=== PATIENT | male | born 1945 | race Hispanic/Latino ===

== ENCOUNTER 2016-10-14 10:26 | Outpatient (CLI) | payer MEDICARE ==
[2016-10-14 12:30] LABS: Anion Gap 15 mmol/L (10-20); BUN (Urea Nitrogen) 21 mg/dL (8.4-25.7); Calc. Creatinine Clearance 0 mL/min (70-130); Calcium 9.1 mg/dL (7.8-10.44); Carbon Dioxide 21 mmol/L (23-31); Chloride 107 mmol/L (98-107); Estimated GFR-MDRD 59; Glucose 182 mg/dL (80-115); Potassium 4.5 mmol/L (3.5-5.1); Sodium 138 mmol/L (136-145)
== END 2016-10-14 10:27 | disposition home or self-care (01) ==
LOC: BURLAB 10:26
PROVIDERS: ATTEND Internal Medicine Nephrology
DX: N18.3 Chronic kidney disease, stage 3 (moderate) (principal)
CPT/HCPCS: 36415; 80048

== ENCOUNTER 2017-02-10 09:43 | Outpatient (CLI) | payer MEDICARE ==
[2017-02-10 12:12] LABS: Anion Gap 11 mmol/L (10-20); BUN (Urea Nitrogen) 20 mg/dL (8.4-25.7); Calc. Creatinine Clearance 0 mL/min (70-130); Calcium 9.3 mg/dL (7.8-10.44); Carbon Dioxide 26 mmol/L (23-31); Chloride 107 mmol/L (98-107); Estimated GFR-MDRD 67; Glucose 149 mg/dL (80-115); Potassium 4.4 mmol/L (3.5-5.1); Sodium 140 mmol/L (136-145)
== END 2017-02-10 09:44 | disposition home or self-care (01) ==
LOC: BURLAB 09:43
PROVIDERS: ATTEND Internal Medicine Nephrology
DX: N18.3 Chronic kidney disease, stage 3 (moderate) (principal)
CPT/HCPCS: 36415; 80048

== ENCOUNTER 2019-11-01 12:33 | Inpatient (IN) | payer MEDICARE ==
[2019-11-01] MEDS ORDERED: Dextrose 5% in Water 1,000 ML IV PRN ×2 (16:27→16:45)
[2019-11-01] MEDS ORDERED: Dextrose 50% Abboject 50 ML SYRINGE SLOW IVP PRN ×2 (16:27→16:45)
[2019-11-01] MEDS ORDERED: HumaLOG 300 UNITS/3 ML VIAL SC PRN (16:45)
[2019-11-01] MEDS: Acetaminophen 325 MG TAB PO PRN (17:41)
[2019-11-01] MEDS: metFORMIN 850 MG TAB PO SCH (17:54)
[2019-11-01] MEDS: Ciprofloxacin 0.3% Ophth Drops 2.5 ml Bottle L EYE SCH ×2 (17:55→23:37)
[2019-11-01] MEDS ORDERED: Ciprofloxacin 0.3% Ophth Drops 2.5 ml Bottle L EYE SCH (18:00)
[2019-11-01] MEDS: Vancomycin HCl 1 GM in Sodium Chloride 0.9% 250 ML 250 ML IVPB SCH (18:20)
[2019-11-01] MEDS: HumaLOG 300 UNITS/3 ML VIAL SC PRN (18:21)
[2019-11-01] MEDS: Rosuvastatin 10 MG TAB PO SCH (20:36)
[2019-11-01] MEDS: Apixaban 5 MG TAB PO SCH (20:37)
[2019-11-01] MEDS: Carvedilol 6.25 MG TAB PO SCH (20:37)
[2019-11-01] MEDS: Lantus 1000 UNITS/10 ML VIAL SC SCH (20:42)
[2019-11-02] MEDS: Ciprofloxacin 0.3% Ophth Drops 2.5 ml Bottle L EYE SCH ×4 (05:07→23:20)
[2019-11-02 05:26] LABS: Hemoglobin 10.7 g/dL (14.0-18.0); Platelet Count 227 thou/uL (130-400)
[2019-11-02] MEDS ORDERED: Prevnar 13-Val Conj/PF 0.5 ML SYRINGE IM ONE (09:00)
[2019-11-02] MEDS: Apixaban 5 MG TAB PO SCH ×2 (09:19→20:23)
[2019-11-02] MEDS: Carvedilol 6.25 MG TAB PO SCH ×2 (09:20→20:23)
[2019-11-02] MEDS: metFORMIN 850 MG TAB PO SCH ×2 (09:20→17:13)
[2019-11-02] MEDS: Vancomycin HCl 1 GM in Sodium Chloride 0.9% 250 ML 250 ML IVPB SCH (11:38)
[2019-11-02] MEDS: HumaLOG 300 UNITS/3 ML VIAL SC PRN (13:36)
[2019-11-02] MEDS: Rosuvastatin 10 MG TAB PO SCH (20:22)
[2019-11-02] MEDS: Lantus 1000 UNITS/10 ML VIAL SC SCH (20:23)
[2019-11-03] MEDS: Vancomycin HCl 1 GM in Sodium Chloride 0.9% 250 ML 250 ML IVPB SCH ×2 (05:19→23:05)
[2019-11-03] MEDS: Ciprofloxacin 0.3% Ophth Drops 2.5 ml Bottle L EYE SCH ×4 (05:21→23:05)
[2019-11-03] MEDS: Albuterol Sulfate 2.5 mg/3 ml Neb NEB PRN ×2 (08:16→20:09)
[2019-11-03] MEDS: Carvedilol 6.25 MG TAB PO SCH ×2 (08:22→20:04)
[2019-11-03] MEDS: Apixaban 5 MG TAB PO SCH ×2 (08:22→20:04)
[2019-11-03] MEDS: metFORMIN 850 MG TAB PO SCH ×2 (08:22→17:15)
[2019-11-03] MEDS: HumaLOG 300 UNITS/3 ML VIAL SC PRN ×2 (08:30→12:56)
[2019-11-03 08:48] LABS: #Lymphocytes 1.1 thou/uL (1.20-3.40); #Monocytes 0.6 thou/uL (0.11-0.59); #Neutrophils 10.1 thou/uL (1.40-6.50); %Basophils 0.4 % (0.0-1.0); %Eosinophils 0.1 % (0.0-10.0); %Lymphocytes 9.4 % (21.0-51.0); %Monocytes 5.3 % (0.0-10.0); %Neutrophils 84.8 % (42.0-75.0); Hemoglobin 10.7 g/dL (14.0-18.0); Mean Corpuscular HGB CONC 32.6 g/dL (32.0-36.0); Mean Corpuscular Hemoglobin 30.9 pg (27.0-31.0); Mean Corpuscular Volume 94.9 fL (78.0-98.0); Mean Platelet Volume 7.2 fL (7.4-10.4); Platelet Count 284 thou/uL (130-400); RBC Distribution Width 12.3 % (11.5-14.5); Red Blood Cell (RBC) Count 3.46 mill/uL (4.70-6.10); White Blood Cell (WBC) Count 11.9 thou/uL (4.8-10.8)
[2019-11-03 08:51] LABS: Anion Gap 15 mmol/L (10-20)
[2019-11-03 08:58] LABS: ALT (SGPT) 10 U/L (8-55); AST (SGOT) 8 U/L (5-34); Alkaline Phosphatase 65 U/L (40-110); BUN (Urea Nitrogen) 13 mg/dL (8.4-25.7); Bilirubin, Total 0.6 mg/dL (0.2-1.2); Calc. Creatinine Clearance 47 mL/min (70-130); Carbon Dioxide 23 mmol/L (23-31); Chloride 104 mmol/L (98-107); Estimated GFR-MDRD 52; Glucose 209 mg/dL (83-110); Potassium 4.3 mmol/L (3.5-5.1); Sodium 138 mmol/L (136-145)
--- NOTE | 2019-11-03 10:51 | RAD ---
CHEST 2 VIEWS: Date: 11/03/2019 AP upright and lateral views were done in a wheelchair. The patient is turned slightly towards the [facility]. Since the 05/08/2010 study, an AICD has been placed. The cardiac size today is close to normal. The v asculature shows a very slight prominence and there is a tiny amount of fluid in the minor fissure. V gabe borderline congestive changes are possible. While the left lung is slightly hazier than the right , this is most likely due to the patient being turned to the side. The lung markings are prominent be hind the heart on the lateral view, but it is difficult to establish a true focal infiltrate here. IMPRESSION: At the moment, the findings seem more in keeping with very slight edema and/or failure. An infectious etiology is not ruled out as of yet. Correlation with presentation and clinical labs. POS: HOME
[2019-11-03] MEDS: traMADol HCl 50 MG TAB PO PRN (10:59)
[2019-11-03] MEDS ORDERED: Furosemide 40 MG TAB PO SCH (12:45)
[2019-11-03 17:13] LABS: Vancomycin, Trough 18.9 ug/mL
[2019-11-03] MEDS: Semaglutide [Ozempic] 0.25 MG SC SCH (17:15)
[2019-11-03] MEDS: Rosuvastatin 10 MG TAB PO SCH (20:03)
[2019-11-03] MEDS: Lantus 1000 UNITS/10 ML VIAL SC SCH (20:03)
[2019-11-04] MEDS: Ciprofloxacin 0.3% Ophth Drops 2.5 ml Bottle L EYE SCH ×4 (05:20→23:26)
[2019-11-04 05:34] LABS: Hemoglobin 9.4 g/dL (14.0-18.0); Platelet Count 200 thou/uL (130-400)
[2019-11-04] MEDS: Carvedilol 6.25 MG TAB PO SCH ×2 (08:19→20:24)
[2019-11-04] MEDS: Apixaban 5 MG TAB PO SCH ×2 (08:19→20:24)
[2019-11-04] MEDS: metFORMIN 850 MG TAB PO SCH ×2 (08:20→18:19)
[2019-11-04] MEDS: HumaLOG 300 UNITS/3 ML VIAL SC PRN ×2 (08:20→18:17)
[2019-11-04] MEDS: traMADol HCl 50 MG TAB PO PRN (12:05)
[2019-11-04] MEDS: Vancomycin HCl 1 GM in Sodium Chloride 0.9% 250 ML 250 ML IVPB SCH (18:13)
[2019-11-04] MEDS: Lantus 1000 UNITS/10 ML VIAL SC SCH (20:22)
[2019-11-05] MEDS: Ciprofloxacin 0.3% Ophth Drops 2.5 ml Bottle L EYE SCH ×4 (05:35→23:57)
[2019-11-05] MEDS: Carvedilol 6.25 MG TAB PO SCH ×2 (08:16→20:25)
[2019-11-05] MEDS: metFORMIN 850 MG TAB PO SCH ×2 (08:16→17:24)
[2019-11-05] MEDS: Apixaban 5 MG TAB PO SCH ×2 (08:17→20:25)
[2019-11-05] MEDS: Vancomycin HCl 1 GM in Sodium Chloride 0.9% 250 ML 250 ML IVPB SCH (11:58)
[2019-11-05] MEDS: HumaLOG 300 UNITS/3 ML VIAL SC PRN (18:01)
[2019-11-05] MEDS: Lantus 1000 UNITS/10 ML VIAL SC SCH (20:25)
[2019-11-06 05:15] LABS: Hemoglobin 9.4 g/dL (14.0-18.0); Platelet Count 234 thou/uL (130-400)
[2019-11-06 05:22] LABS: Vancomycin, Trough 19.1 ug/mL
[2019-11-06] MEDS: Ciprofloxacin 0.3% Ophth Drops 2.5 ml Bottle L EYE SCH ×3 (06:10→17:17)
[2019-11-06] MEDS: Vancomycin HCl 1 GM in Sodium Chloride 0.9% 250 ML 250 ML IVPB SCH (06:15)
[2019-11-06] MEDS: Acetaminophen 325 MG TAB PO PRN ×2 (08:12→18:05)
[2019-11-06] MEDS: Carvedilol 6.25 MG TAB PO SCH ×2 (08:13→20:36)
[2019-11-06] MEDS: metFORMIN 850 MG TAB PO SCH ×2 (08:13→17:16)
[2019-11-06] MEDS: Apixaban 5 MG TAB PO SCH ×2 (08:13→20:36)
[2019-11-06] MEDS: Rosuvastatin 10 MG TAB PO SCH (20:36)
[2019-11-06] MEDS: Lantus 1000 UNITS/10 ML VIAL SC SCH (20:37)
[2019-11-06] MEDS: Albuterol Sulfate 2.5 mg/3 ml Neb NEB PRN (20:43)
[2019-11-07] MEDS: Ciprofloxacin 0.3% Ophth Drops 2.5 ml Bottle L EYE SCH ×5 (00:01→23:25)
[2019-11-07] MEDS: Vancomycin HCl 1 GM in Sodium Chloride 0.9% 250 ML 250 ML IVPB SCH ×2 (00:01→17:43)
[2019-11-07] MEDS: Carvedilol 6.25 MG TAB PO SCH ×2 (08:18→20:09)
[2019-11-07] MEDS: Furosemide 40 MG TAB PO SCH (08:19)
[2019-11-07] MEDS: metFORMIN 850 MG TAB PO SCH ×2 (08:19→17:45)
[2019-11-07] MEDS: Apixaban 5 MG TAB PO SCH ×2 (08:19→20:10)
[2019-11-07] MEDS: Rosuvastatin 10 MG TAB PO SCH (20:09)
[2019-11-07] MEDS: Lantus 1000 UNITS/10 ML VIAL SC SCH (20:09)
[2019-11-08 05:14] LABS: Platelet Count 243 thou/uL (130-400)
[2019-11-08] MEDS: Ciprofloxacin 0.3% Ophth Drops 2.5 ml Bottle L EYE SCH ×4 (05:52→20:26)
[2019-11-08] MEDS: metFORMIN 850 MG TAB PO SCH ×2 (08:28→17:48)
[2019-11-08] MEDS: Apixaban 5 MG TAB PO SCH ×2 (08:29→20:30)
[2019-11-08] MEDS: Carvedilol 6.25 MG TAB PO SCH ×2 (08:29→20:30)
[2019-11-08] MEDS: Vancomycin HCl 1 GM in Sodium Chloride 0.9% 250 ML 250 ML IVPB SCH (12:26)
[2019-11-08] MEDS: HumaLOG 300 UNITS/3 ML VIAL SC PRN (17:48)
[2019-11-08] MEDS: Lantus 1000 UNITS/10 ML VIAL SC SCH (20:25)
[2019-11-08] MEDS: Rosuvastatin 10 MG TAB PO SCH (20:30)
[2019-11-09 05:20] LABS: Vancomycin, Trough 20.1 ug/mL
[2019-11-09] MEDS: Vancomycin HCl 1 GM in Sodium Chloride 0.9% 250 ML 250 ML IVPB SCH (05:36)
[2019-11-09] MEDS: Ciprofloxacin 0.3% Ophth Drops 2.5 ml Bottle L EYE SCH ×3 (05:39→18:44)
[2019-11-09] MEDS: Apixaban 5 MG TAB PO SCH ×2 (09:14→20:55)
[2019-11-09] MEDS: metFORMIN 850 MG TAB PO SCH ×2 (09:14→18:35)
[2019-11-09] MEDS: Furosemide 40 MG TAB PO SCH (09:14)
[2019-11-09] MEDS: Carvedilol 6.25 MG TAB PO SCH ×2 (09:21→20:55)
[2019-11-09] MEDS: Lantus 1000 UNITS/10 ML VIAL SC SCH (20:53)
[2019-11-09] MEDS: Rosuvastatin 10 MG TAB PO SCH (20:54)
[2019-11-10] MEDS: Vancomycin HCl 1 GM in Sodium Chloride 0.9% 250 ML 250 ML IVPB SCH ×2 (00:02→18:12)
[2019-11-10] MEDS: Ciprofloxacin 0.3% Ophth Drops 2.5 ml Bottle L EYE SCH ×5 (00:02→23:54)
[2019-11-10 05:33] LABS: #Basophils 0.1 thou/uL (0.0-0.2); #Eosinphils 0.1 thou/uL (0.0-0.7); #Lymphocytes 2.1 thou/uL (1.20-3.40); #Neutrophils 5.7 thou/uL (1.40-6.50); %Basophils 0.7 % (0.0-1.0); %Eosinophils 0.7 % (0.0-10.0); %Lymphocytes 23.2 % (21.0-51.0); %Monocytes 11.6 % (0.0-10.0); %Neutrophils 63.8 % (42.0-75.0); Hemoglobin 10.4 g/dL (14.0-18.0); Mean Corpuscular HGB CONC 31.6 g/dL (32.0-36.0); Mean Corpuscular Hemoglobin 29.9 pg (27.0-31.0); Mean Corpuscular Volume 94.5 fL (78.0-98.0); Mean Platelet Volume 8.2 fL (7.4-10.4); Platelet Count 288 thou/uL (130-400); Red Blood Cell (RBC) Count 3.48 mill/uL (4.70-6.10); White Blood Cell (WBC) Count 8.9 thou/uL (4.8-10.8)
[2019-11-10 05:45] LABS: ALT (SGPT) 8 U/L (8-55); AST (SGOT) 11 U/L (5-34); Alkaline Phosphatase 67 U/L (40-110); Anion Gap 11 mmol/L (10-20); BUN (Urea Nitrogen) 13 mg/dL (8.4-25.7); Bilirubin, Total 0.5 mg/dL (0.2-1.2); Calc. Creatinine Clearance 50 mL/min (70-130); Calcium 8.8 mg/dL (7.8-10.44); Carbon Dioxide 29 mmol/L (23-31); Chloride 101 mmol/L (98-107); Estimated GFR-MDRD 60; Globulin 3.7 g/dL (2.4-3.5); Protein, Total 6.7 g/dL (5.8-8.1); Sodium 137 mmol/L (136-145)
[2019-11-10 05:51] LABS: Glucose 53 mg/dL (83-110)
[2019-11-10] MEDS: Carvedilol 6.25 MG TAB PO SCH ×2 (08:37→20:25)
[2019-11-10] MEDS: Apixaban 5 MG TAB PO SCH ×2 (08:37→20:26)
[2019-11-10] MEDS: metFORMIN 850 MG TAB PO SCH ×2 (08:37→18:06)
[2019-11-10] MEDS: Semaglutide [Ozempic] 0.25 MG SC SCH (18:07)
[2019-11-10] MEDS: Lantus 1000 UNITS/10 ML VIAL SC SCH (20:23)
[2019-11-10] MEDS: Rosuvastatin 10 MG TAB PO SCH (20:25)
[2019-11-11] MEDS: Ciprofloxacin 0.3% Ophth Drops 2.5 ml Bottle L EYE SCH ×4 (05:54→23:15)
[2019-11-11] MEDS: Furosemide 40 MG TAB PO SCH (08:26)
[2019-11-11] MEDS: Carvedilol 6.25 MG TAB PO SCH ×2 (08:26→20:31)
[2019-11-11] MEDS: metFORMIN 850 MG TAB PO SCH ×2 (08:26→17:43)
[2019-11-11] MEDS: Apixaban 5 MG TAB PO SCH ×2 (08:27→20:31)
[2019-11-11] MEDS: Vancomycin HCl 1 GM in Sodium Chloride 0.9% 250 ML 250 ML IVPB SCH (11:54)
[2019-11-11] MEDS: Lantus 1000 UNITS/10 ML VIAL SC SCH (20:30)
[2019-11-12 05:17] LABS: Hemoglobin 10.5 g/dL (14.0-18.0); Platelet Count 243 thou/uL (130-400)
[2019-11-12 05:26] LABS: Vancomycin, Trough 18.6 ug/mL
[2019-11-12] MEDS: Ciprofloxacin 0.3% Ophth Drops 2.5 ml Bottle L EYE SCH ×4 (06:01→20:40)
[2019-11-12] MEDS: Vancomycin HCl 1 GM in Sodium Chloride 0.9% 250 ML 250 ML IVPB SCH ×2 (06:01→23:50)
[2019-11-12] MEDS: Apixaban 5 MG TAB PO SCH ×2 (08:38→20:39)
[2019-11-12] MEDS: metFORMIN 850 MG TAB PO SCH ×2 (08:38→17:36)
[2019-11-12] MEDS: Carvedilol 6.25 MG TAB PO SCH ×2 (08:38→20:39)
[2019-11-12 10:25] LABS: Anion Gap 13 mmol/L (10-20); BUN (Urea Nitrogen) 11 mg/dL (8.4-25.7); Calc. Creatinine Clearance 51 mL/min (70-130); Calcium 8.8 mg/dL (7.8-10.44); Carbon Dioxide 25 mmol/L (23-31); Chloride 101 mmol/L (98-107); Estimated GFR-MDRD 63; Glucose 109 mg/dL (83-110); Potassium 3.7 mmol/L (3.5-5.1); Sodium 135 mmol/L (136-145)
[2019-11-12] MEDS: Lantus 1000 UNITS/10 ML VIAL SC SCH (20:36)
[2019-11-13] MEDS: Ciprofloxacin 0.3% Ophth Drops 2.5 ml Bottle L EYE SCH ×3 (05:33→17:25)
[2019-11-13] MEDS: Carvedilol 6.25 MG TAB PO SCH ×2 (08:42→20:40)
[2019-11-13] MEDS: Apixaban 5 MG TAB PO SCH ×2 (08:44→20:41)
[2019-11-13] MEDS: metFORMIN 850 MG TAB PO SCH ×2 (08:44→17:27)
[2019-11-13] MEDS: HumaLOG 300 UNITS/3 ML VIAL SC PRN (12:25)
[2019-11-13] MEDS: Vancomycin HCl 1 GM in Sodium Chloride 0.9% 250 ML 250 ML IVPB SCH (17:29)
[2019-11-13] MEDS: Lantus 1000 UNITS/10 ML VIAL SC SCH (20:39)
[2019-11-13] MEDS: Rosuvastatin 10 MG TAB PO SCH (20:40)
[2019-11-14] MEDS: Ciprofloxacin 0.3% Ophth Drops 2.5 ml Bottle L EYE SCH ×4 (00:08→17:28)
[2019-11-14 05:25] LABS: Hemoglobin 10.3 g/dL (14.0-18.0); Platelet Count 231 thou/uL (130-400)
[2019-11-14] MEDS: metFORMIN 850 MG TAB PO SCH ×2 (09:09→17:29)
[2019-11-14] MEDS: Apixaban 5 MG TAB PO SCH (09:09)
[2019-11-14] MEDS: Carvedilol 6.25 MG TAB PO SCH ×2 (09:10→20:33)
[2019-11-14] MEDS: Furosemide 40 MG TAB PO SCH (09:10)
[2019-11-14] MEDS: Vancomycin HCl 1 GM in Sodium Chloride 0.9% 250 ML 250 ML IVPB SCH (12:12)
[2019-11-14] MEDS: HumaLOG 300 UNITS/3 ML VIAL SC PRN ×2 (12:21→17:33)
[2019-11-14] MEDS: traMADol HCl 50 MG TAB PO PRN (20:30)
[2019-11-14] MEDS: Apixaban 2.5 MG TAB PO SCH (20:32)
[2019-11-14] MEDS: Rosuvastatin 10 MG TAB PO SCH (20:32)
[2019-11-14] MEDS: Lantus 1000 UNITS/10 ML VIAL SC SCH (20:33)
[2019-11-15] MEDS: Ciprofloxacin 0.3% Ophth Drops 2.5 ml Bottle L EYE SCH ×5 (00:02→23:50)
[2019-11-15] MEDS: Vancomycin HCl 1 GM in Sodium Chloride 0.9% 250 ML 250 ML IVPB SCH ×2 (05:40→23:45)
[2019-11-15] MEDS: Apixaban 2.5 MG TAB PO SCH ×2 (08:17→20:27)
[2019-11-15] MEDS: Carvedilol 6.25 MG TAB PO SCH ×2 (08:17→20:26)
[2019-11-15] MEDS: metFORMIN 850 MG TAB PO SCH ×2 (08:17→18:06)
[2019-11-15] MEDS: HumaLOG 300 UNITS/3 ML VIAL SC PRN ×2 (08:23→18:09)
[2019-11-15] MEDS: Rosuvastatin 10 MG TAB PO SCH (20:25)
[2019-11-15] MEDS: Lantus 1000 UNITS/10 ML VIAL SC SCH (20:31)
[2019-11-15] MEDS: Zolpidem Tartrate 5 MG TAB PO PRN (23:45)
[2019-11-16 05:22] LABS: Hemoglobin 10.7 g/dL (14.0-18.0); Platelet Count 231 thou/uL (130-400)
[2019-11-16] MEDS: Ciprofloxacin 0.3% Ophth Drops 2.5 ml Bottle L EYE SCH ×3 (05:48→18:03)
[2019-11-16] MEDS: Furosemide 40 MG TAB PO SCH (09:40)
[2019-11-16] MEDS: Apixaban 2.5 MG TAB PO SCH ×2 (09:40→20:48)
[2019-11-16] MEDS: metFORMIN 850 MG TAB PO SCH ×2 (09:40→18:01)
[2019-11-16] MEDS: Carvedilol 6.25 MG TAB PO SCH ×2 (09:41→20:48)
[2019-11-16 17:11] LABS: Vancomycin, Trough 24.4 ug/mL
[2019-11-16] MEDS: traMADol HCl 50 MG TAB PO PRN (19:45)
[2019-11-16] MEDS: Lantus 1000 UNITS/10 ML VIAL SC SCH (20:47)
[2019-11-16] MEDS: Rosuvastatin 10 MG TAB PO SCH (20:48)
[2019-11-16] MEDS: Zolpidem Tartrate 5 MG TAB PO PRN (20:50)
[2019-11-16] MEDS: Ondansetron ODT 4 MG TAB PO PRN (21:54)
[2019-11-17] MEDS: Ciprofloxacin 0.3% Ophth Drops 2.5 ml Bottle L EYE SCH ×5 (00:11→23:13)
[2019-11-17] MEDS: traMADol HCl 50 MG TAB PO PRN (01:23)
[2019-11-17 05:17] LABS: #Basophils 0.1 thou/uL (0.0-0.2); #Eosinphils 0.1 thou/uL (0.0-0.7); #Monocytes 0.6 thou/uL (0.11-0.59); #Neutrophils 3.3 thou/uL (1.40-6.50); %Basophils 1.2 % (0.0-1.0); %Eosinophils 1.6 % (0.0-10.0); %Lymphocytes 32.6 % (21.0-51.0); %Monocytes 9.8 % (0.0-10.0); %Neutrophils 54.8 % (42.0-75.0); Hemoglobin 10.3 g/dL (14.0-18.0); Mean Corpuscular Hemoglobin 30.5 pg (27.0-31.0); Mean Corpuscular Volume 92.3 fL (78.0-98.0); Mean Platelet Volume 7.6 fL (7.4-10.4); Platelet Count 229 thou/uL (130-400); RBC Distribution Width 12.5 % (11.5-14.5); Red Blood Cell (RBC) Count 3.36 mill/uL (4.70-6.10)
[2019-11-17 05:28] LABS: ALT (SGPT) 12 U/L (8-55); AST (SGOT) 13 U/L (5-34); Albumin 3.3 g/dL (3.4-4.8); Alkaline Phosphatase 62 U/L (40-110); Anion Gap 13 mmol/L (10-20); BUN (Urea Nitrogen) 20 mg/dL (8.4-25.7); Bilirubin, Total 0.4 mg/dL (0.2-1.2); Calc. Creatinine Clearance 41 mL/min (70-130); Calcium 9.1 mg/dL (7.8-10.44); Carbon Dioxide 26 mmol/L (23-31); Chloride 102 mmol/L (98-107); Estimated GFR-MDRD 50; Globulin 3.4 g/dL (2.4-3.5); Glucose 113 mg/dL (83-110); Protein, Total 6.7 g/dL (5.8-8.1); Sodium 137 mmol/L (136-145)
[2019-11-17] MEDS: Vancomycin HCl 1 GM in Sodium Chloride 0.9% 250 ML 250 ML IVPB SCH (07:56)
[2019-11-17] MEDS: Apixaban 2.5 MG TAB PO SCH ×2 (08:00→20:40)
[2019-11-17] MEDS: Carvedilol 6.25 MG TAB PO SCH ×2 (08:00→20:39)
[2019-11-17] MEDS: metFORMIN 850 MG TAB PO SCH ×2 (08:01→17:57)
[2019-11-17] MEDS: Semaglutide [Ozempic] 0.25 MG SC SCH (18:02)
[2019-11-17] MEDS: Lantus 1000 UNITS/10 ML VIAL SC SCH (20:36)
[2019-11-17] MEDS: Rosuvastatin 10 MG TAB PO SCH (20:38)
[2019-11-17] MEDS: Zolpidem Tartrate 5 MG TAB PO PRN (23:13)
[2019-11-18 05:04] LABS: Hemoglobin 11.1 g/dL (14.0-18.0); Platelet Count 239 thou/uL (130-400)
[2019-11-18] MEDS: Ciprofloxacin 0.3% Ophth Drops 2.5 ml Bottle L EYE SCH ×2 (05:22→11:29)
[2019-11-18] MEDS: Apixaban 2.5 MG TAB PO SCH ×2 (09:23→20:11)
[2019-11-18] MEDS: Furosemide 40 MG TAB PO SCH (09:24)
[2019-11-18] MEDS: metFORMIN 850 MG TAB PO SCH ×2 (09:24→17:20)
[2019-11-18] MEDS: Carvedilol 6.25 MG TAB PO SCH ×2 (09:25→20:11)
[2019-11-18] MEDS: Vancomycin HCl 1 GM in Sodium Chloride 0.9% 250 ML 250 ML IVPB SCH (09:25)
[2019-11-18] MEDS ORDERED: Artificial Tear Sol 15 ML BOT FS PRN (15:17)
[2019-11-18] MEDS: traMADol HCl 50 MG TAB PO PRN (20:13)
[2019-11-18] MEDS: Lantus 1000 UNITS/10 ML VIAL SC SCH (20:18)
[2019-11-18] MEDS: Zolpidem Tartrate 5 MG TAB PO PRN (23:02)
[2019-11-18] MEDS: Acetaminophen 325 MG TAB PO PRN (23:20)
[2019-11-19] MEDS: traMADol HCl 50 MG TAB PO PRN ×2 (01:19→20:42)
[2019-11-19] MEDS: Vancomycin HCl 1 GM in Sodium Chloride 0.9% 250 ML 250 ML IVPB SCH (08:09)
[2019-11-19] MEDS: Apixaban 2.5 MG TAB PO SCH ×2 (08:10→20:41)
[2019-11-19] MEDS: metFORMIN 850 MG TAB PO SCH ×2 (08:10→17:36)
[2019-11-19] MEDS: Carvedilol 6.25 MG TAB PO SCH ×2 (08:10→20:41)
[2019-11-19] MEDS: Lantus 1000 UNITS/10 ML VIAL SC SCH (20:38)
[2019-11-20] MEDS: Zolpidem Tartrate 5 MG TAB PO PRN (00:20)
[2019-11-20] MEDS: Acetaminophen 325 MG TAB PO PRN ×2 (00:20→20:53)
[2019-11-20 07:13] LABS: Hemoglobin 10.5 g/dL (14.0-18.0); Platelet Count 169 thou/uL (130-400)
[2019-11-20 07:25] LABS: Vancomycin, Trough 20.3 ug/mL
[2019-11-20] MEDS: Vancomycin HCl 1 GM in Sodium Chloride 0.9% 250 ML 250 ML IVPB SCH (08:10)
[2019-11-20] MEDS: Carvedilol 6.25 MG TAB PO SCH ×2 (08:11→20:55)
[2019-11-20] MEDS: Apixaban 2.5 MG TAB PO SCH ×2 (08:11→20:54)
[2019-11-20] MEDS: metFORMIN 850 MG TAB PO SCH ×2 (08:11→17:35)
[2019-11-20] MEDS: HumaLOG 300 UNITS/3 ML VIAL SC PRN (12:36)
[2019-11-20] MEDS: Rosuvastatin 10 MG TAB PO SCH (20:54)
[2019-11-20] MEDS: Lantus 1000 UNITS/10 ML VIAL SC SCH (21:01)
[2019-11-21] MEDS: metFORMIN 850 MG TAB PO SCH ×2 (09:45→17:23)
[2019-11-21] MEDS: Furosemide 40 MG TAB PO SCH (09:45)
[2019-11-21] MEDS: Apixaban 2.5 MG TAB PO SCH ×2 (09:45→20:30)
[2019-11-21] MEDS: Vancomycin HCl 1 GM in Sodium Chloride 0.9% 250 ML 250 ML IVPB SCH (09:49)
[2019-11-21] MEDS: Carvedilol 6.25 MG TAB PO SCH ×2 (09:55→20:30)
[2019-11-21] MEDS: Ondansetron ODT 4 MG TAB PO PRN (15:42)
[2019-11-21] MEDS: Rosuvastatin 10 MG TAB PO SCH (20:30)
[2019-11-21] MEDS: Sacubitril 49 MG/Valsartan 51 MG TABLET PO SCH (20:31)
[2019-11-21] MEDS: Lantus 1000 UNITS/10 ML VIAL SC SCH (20:31)
[2019-11-22] MEDS: traMADol HCl 50 MG TAB PO PRN (01:52)
[2019-11-22 05:21] LABS: Hemoglobin 10.2 g/dL (14.0-18.0); Platelet Count 156 thou/uL (130-400)
[2019-11-22] MEDS: Sacubitril 49 MG/Valsartan 51 MG TABLET PO SCH ×2 (09:06→20:31)
[2019-11-22] MEDS: Apixaban 2.5 MG TAB PO SCH ×2 (09:07→20:30)
[2019-11-22] MEDS: metFORMIN 850 MG TAB PO SCH ×2 (09:07→17:32)
[2019-11-22] MEDS: Carvedilol 6.25 MG TAB PO SCH ×2 (09:10→20:37)
[2019-11-22 09:21] LABS: Vancomycin, Trough 19.4 ug/mL
[2019-11-22] MEDS ORDERED: Vancomycin HCl 1 GM in Sodium Chloride 0.9% 250 ML 250 ML IVPB SCH (10:00)
[2019-11-22] MEDS: Vancomycin HCl 1 GM in Sodium Chloride 0.9% 250 ML 250 ML IVPB SCH (10:42)
[2019-11-22] MEDS: Rosuvastatin 10 MG TAB PO SCH (20:29)
[2019-11-22] MEDS: Lantus 1000 UNITS/10 ML VIAL SC SCH (20:29)
[2019-11-22] MEDS: Mirtazapine 15 MG TAB PO SCH (20:32)
[2019-11-23] MEDS: Sacubitril 49 MG/Valsartan 51 MG TABLET PO SCH ×2 (09:15→20:18)
[2019-11-23] MEDS: metFORMIN 850 MG TAB PO SCH ×3 (09:15→17:32)
[2019-11-23] MEDS: Apixaban 2.5 MG TAB PO SCH ×2 (09:16→20:19)
[2019-11-23] MEDS: Furosemide 40 MG TAB PO SCH (09:16)
[2019-11-23] MEDS: Carvedilol 6.25 MG TAB PO SCH ×2 (09:16→20:19)
[2019-11-23] MEDS: Vancomycin HCl 1 GM in Sodium Chloride 0.9% 250 ML 250 ML IVPB SCH (09:26)
[2019-11-23] MEDS: HumaLOG 300 UNITS/3 ML VIAL SC PRN (12:11)
[2019-11-23] MEDS: Mirtazapine 15 MG TAB PO SCH (20:18)
[2019-11-23] MEDS: Rosuvastatin 10 MG TAB PO SCH (20:18)
[2019-11-23] MEDS: Lantus 1000 UNITS/10 ML VIAL SC SCH (20:20)
[2019-11-24 05:26] LABS: #Basophils 0.1 thou/uL (0.0-0.2); #Eosinphils 0.1 thou/uL (0.0-0.7); #Lymphocytes 1.8 thou/uL (1.20-3.40); #Monocytes 0.7 thou/uL (0.11-0.59); #Neutrophils 7.6 thou/uL (1.40-6.50); %Basophils 0.7 % (0.0-1.0); %Eosinophils 0.9 % (0.0-10.0); %Lymphocytes 17.8 % (21.0-51.0); %Monocytes 7.1 % (0.0-10.0); %Neutrophils 73.5 % (42.0-75.0); Hemoglobin 11.3 g/dL (14.0-18.0); Mean Corpuscular HGB CONC 32.6 g/dL (32.0-36.0); Mean Corpuscular Hemoglobin 30.3 pg (27.0-31.0); Mean Corpuscular Volume 92.8 fL (78.0-98.0); Mean Platelet Volume 8.7 fL (7.4-10.4); Platelet Count 165 thou/uL (130-400); Red Blood Cell (RBC) Count 3.74 mill/uL (4.70-6.10); White Blood Cell (WBC) Count 10.4 thou/uL (4.8-10.8)
[2019-11-24 05:39] LABS: ALT (SGPT) 13 U/L (8-55); AST (SGOT) 13 U/L (5-34); Albumin 3.5 g/dL (3.4-4.8); Alkaline Phosphatase 62 U/L (40-110); Anion Gap 11 mmol/L (10-20); BUN (Urea Nitrogen) 20 mg/dL (8.4-25.7); Bilirubin, Total 0.5 mg/dL (0.2-1.2); Calc. Creatinine Clearance 40 mL/min (70-130); Calcium 9.2 mg/dL (7.8-10.44); Carbon Dioxide 25 mmol/L (23-31); Chloride 106 mmol/L (98-107); Estimated GFR-MDRD 51; Globulin 3.3 g/dL (2.4-3.5); Glucose 75 mg/dL (83-110); Potassium 3.6 mmol/L (3.5-5.1); Protein, Total 6.8 g/dL (5.8-8.1); Sodium 138 mmol/L (136-145)
[2019-11-24] MEDS: metFORMIN 850 MG TAB PO SCH ×2 (08:40→18:10)
[2019-11-24] MEDS: Sacubitril 49 MG/Valsartan 51 MG TABLET PO SCH ×2 (08:41→20:35)
[2019-11-24] MEDS: Carvedilol 6.25 MG TAB PO SCH ×2 (08:41→20:36)
[2019-11-24] MEDS: Apixaban 2.5 MG TAB PO SCH ×2 (08:41→20:37)
[2019-11-24 09:37] LABS: Vancomycin, Trough 20.3 ug/mL
[2019-11-24] MEDS: Vancomycin HCl 1 GM in Sodium Chloride 0.9% 250 ML 250 ML IVPB SCH (10:26)
[2019-11-24] MEDS: HumaLOG 300 UNITS/3 ML VIAL SC PRN (18:09)
[2019-11-24] MEDS: Semaglutide [Ozempic] 0.25 MG SC SCH (18:10)
[2019-11-24] MEDS: Lantus 1000 UNITS/10 ML VIAL SC SCH (20:32)
[2019-11-24] MEDS: Rosuvastatin 10 MG TAB PO SCH (20:35)
[2019-11-24] MEDS: Mirtazapine 15 MG TAB PO SCH (20:37)
[2019-11-24] MEDS: traMADol HCl 50 MG TAB PO PRN (23:14)
[2019-11-24] MEDS: Acetaminophen 325 MG TAB PO PRN (23:39)
[2019-11-25] MEDS: metFORMIN 850 MG TAB PO SCH ×2 (08:23→17:49)
[2019-11-25] MEDS: Sacubitril 49 MG/Valsartan 51 MG TABLET PO SCH ×2 (08:23→20:12)
[2019-11-25] MEDS: Apixaban 2.5 MG TAB PO SCH ×2 (08:24→20:11)
[2019-11-25] MEDS: Furosemide 40 MG TAB PO SCH (08:24)
[2019-11-25] MEDS: Carvedilol 6.25 MG TAB PO SCH ×2 (08:24→20:12)
[2019-11-25] MEDS: Vancomycin HCl 1 GM in Sodium Chloride 0.9% 250 ML 250 ML IVPB SCH (09:56)
[2019-11-25] MEDS: HumaLOG 300 UNITS/3 ML VIAL SC PRN (17:50)
[2019-11-25] MEDS: Mirtazapine 15 MG TAB PO SCH (20:12)
[2019-11-25] MEDS: Lantus 1000 UNITS/10 ML VIAL SC SCH (20:12)
[2019-11-26 05:44] LABS: Hemoglobin 11.9 g/dL (14.0-18.0); Platelet Count 176 thou/uL (130-400)
[2019-11-26] MEDS: Carvedilol 6.25 MG TAB PO SCH ×2 (08:51→20:36)
[2019-11-26] MEDS: Sacubitril 49 MG/Valsartan 51 MG TABLET PO SCH ×2 (08:52→20:35)
[2019-11-26] MEDS: metFORMIN 850 MG TAB PO SCH ×2 (08:52→17:33)
[2019-11-26] MEDS: Apixaban 2.5 MG TAB PO SCH ×2 (08:52→20:36)
[2019-11-26 09:08] LABS: Vancomycin, Trough 22.4 ug/mL
[2019-11-26] MEDS: Vancomycin HCl 750 MG in Sodium Chloride 0.9% 250 ML 250 ML IVPB SCH (10:31)
[2019-11-26] MEDS: HumaLOG 300 UNITS/3 ML VIAL SC PRN (13:22)
[2019-11-26] MEDS: Lantus 1000 UNITS/10 ML VIAL SC SCH (20:33)
[2019-11-26] MEDS: Mirtazapine 15 MG TAB PO SCH (20:36)
[2019-11-26] MEDS: traMADol HCl 50 MG TAB PO PRN (23:05)
[2019-11-27] MEDS: Carvedilol 6.25 MG TAB PO SCH ×2 (08:36→20:27)
[2019-11-27] MEDS: Apixaban 2.5 MG TAB PO SCH ×2 (08:37→20:27)
[2019-11-27] MEDS: metFORMIN 850 MG TAB PO SCH ×2 (08:37→17:29)
[2019-11-27] MEDS: Sacubitril 49 MG/Valsartan 51 MG TABLET PO SCH ×2 (08:37→20:28)
[2019-11-27] MEDS: Vancomycin HCl 750 MG in Sodium Chloride 0.9% 250 ML 250 ML IVPB SCH (09:42)
[2019-11-27] MEDS: HumaLOG 300 UNITS/3 ML VIAL SC PRN (17:37)
[2019-11-27] MEDS: Lantus 1000 UNITS/10 ML VIAL SC SCH (20:26)
[2019-11-27] MEDS: Rosuvastatin 10 MG TAB PO SCH (20:27)
[2019-11-27] MEDS: Mirtazapine 15 MG TAB PO SCH (20:28)
[2019-11-28 05:26] LABS: Hemoglobin 10.6 g/dL (14.0-18.0); Platelet Count 156 thou/uL (130-400)
[2019-11-28] MEDS: Sacubitril 49 MG/Valsartan 51 MG TABLET PO SCH ×2 (08:12→20:35)
[2019-11-28] MEDS: Apixaban 2.5 MG TAB PO SCH (08:13)
[2019-11-28] MEDS: Carvedilol 6.25 MG TAB PO SCH ×2 (08:13→20:35)
[2019-11-28] MEDS: metFORMIN 850 MG TAB PO SCH ×2 (08:13→17:37)
[2019-11-28] MEDS: Furosemide 40 MG TAB PO SCH (08:13)
[2019-11-28 09:31] LABS: Vancomycin, Trough 14.4 ug/mL
[2019-11-28] MEDS: Vancomycin HCl 1 GM in Sodium Chloride 0.9% 250 ML 250 ML IVPB SCH (10:11)
[2019-11-28] MEDS: Ondansetron ODT 4 MG TAB PO PRN (11:50)
[2019-11-28] MEDS: Lantus 1000 UNITS/10 ML VIAL SC SCH (20:34)
[2019-11-28] MEDS: Mirtazapine 15 MG TAB PO SCH (20:35)
[2019-11-28] MEDS: Apixaban 5 MG TAB PO SCH (20:35)
[2019-11-28] MEDS: Rosuvastatin 10 MG TAB PO SCH (20:35)
[2019-11-29] MEDS: Carvedilol 6.25 MG TAB PO SCH ×2 (08:18→20:33)
[2019-11-29] MEDS: metFORMIN 850 MG TAB PO SCH ×2 (08:18→17:30)
[2019-11-29] MEDS: Sacubitril 49 MG/Valsartan 51 MG TABLET PO SCH ×2 (08:19→20:33)
[2019-11-29] MEDS: Apixaban 5 MG TAB PO SCH ×2 (08:19→20:34)
[2019-11-29] MEDS: Vancomycin HCl 1 GM in Sodium Chloride 0.9% 250 ML 250 ML IVPB SCH (10:03)
[2019-11-29] MEDS: Lantus 1000 UNITS/10 ML VIAL SC SCH (20:32)
[2019-11-29] MEDS: Rosuvastatin 10 MG TAB PO SCH (20:33)
[2019-11-29] MEDS: Mirtazapine 15 MG TAB PO SCH (20:34)
[2019-11-30] MEDS: Apixaban 5 MG TAB PO SCH ×2 (08:43→20:58)
[2019-11-30] MEDS: metFORMIN 850 MG TAB PO SCH ×2 (08:43→17:16)
[2019-11-30] MEDS: Sacubitril 49 MG/Valsartan 51 MG TABLET PO SCH ×2 (08:43→20:58)
[2019-11-30] MEDS: Furosemide 40 MG TAB PO SCH (08:43)
[2019-11-30] MEDS: Carvedilol 6.25 MG TAB PO SCH ×2 (08:43→20:58)
[2019-11-30 09:13] LABS: Hemoglobin 11.1 g/dL (14.0-18.0); Platelet Count 141 thou/uL (130-400)
[2019-11-30 09:23] LABS: Vancomycin, Trough 18.5 ug/mL
[2019-11-30] MEDS: Vancomycin HCl 1 GM in Sodium Chloride 0.9% 250 ML 250 ML IVPB SCH (10:35)
[2019-11-30] MEDS: HumaLOG 300 UNITS/3 ML VIAL SC PRN (17:40)
[2019-11-30] MEDS: Rosuvastatin 10 MG TAB PO SCH (20:55)
[2019-11-30] MEDS: Mirtazapine 15 MG TAB PO SCH (20:55)
[2019-11-30] MEDS: Lantus 1000 UNITS/10 ML VIAL SC SCH (21:07)
[2019-12-01 05:49] LABS: #Basophils 0.1 thou/uL (0.0-0.2); #Eosinphils 0.1 thou/uL (0.0-0.7); #Lymphocytes 2.1 thou/uL (1.20-3.40); #Monocytes 0.7 thou/uL (0.11-0.59); #Neutrophils 4.2 thou/uL (1.40-6.50); %Basophils 1.2 % (0.0-1.0); %Eosinophils 1.8 % (0.0-10.0); %Lymphocytes 28.4 % (21.0-51.0); %Monocytes 10.3 % (0.0-10.0); %Neutrophils 58.3 % (42.0-75.0); Hemoglobin 10.8 g/dL (14.0-18.0); Mean Corpuscular HGB CONC 32.8 g/dL (32.0-36.0); Mean Corpuscular Hemoglobin 30.6 pg (27.0-31.0); Mean Corpuscular Volume 93.2 fL (78.0-98.0); Mean Platelet Volume 10.1 fL (7.4-10.4); Platelet Count 144 thou/uL (130-400); RBC Distribution Width 13.1 % (11.5-14.5); Red Blood Cell (RBC) Count 3.55 mill/uL (4.70-6.10); White Blood Cell (WBC) Count 7.3 thou/uL (4.8-10.8)
[2019-12-01 05:57] LABS: ALT (SGPT) 24 U/L (8-55); AST (SGOT) 25 U/L (5-34); Albumin 3.6 g/dL (3.4-4.8); Alkaline Phosphatase 68 U/L (40-110); Anion Gap 14 mmol/L (10-20); BUN (Urea Nitrogen) 18 mg/dL (8.4-25.7); Bilirubin, Total 0.5 mg/dL (0.2-1.2); Calc. Creatinine Clearance 39 mL/min (70-130); Calcium 9.6 mg/dL (7.8-10.44); Carbon Dioxide 25 mmol/L (23-31); Chloride 105 mmol/L (98-107); Estimated GFR-MDRD 48; Globulin 3.2 g/dL (2.4-3.5); Glucose 116 mg/dL (83-110); Potassium 3.6 mmol/L (3.5-5.1); Protein, Total 6.8 g/dL (5.8-8.1); Sodium 140 mmol/L (136-145)
[2019-12-01] MEDS: Sacubitril 49 MG/Valsartan 51 MG TABLET PO SCH ×2 (09:18→20:42)
[2019-12-01] MEDS: Carvedilol 6.25 MG TAB PO SCH ×2 (09:19→20:44)
[2019-12-01] MEDS: Apixaban 5 MG TAB PO SCH ×2 (09:19→20:43)
[2019-12-01] MEDS: metFORMIN 850 MG TAB PO SCH ×2 (09:20→17:42)
[2019-12-01] MEDS: Vancomycin HCl 1 GM in Sodium Chloride 0.9% 250 ML 250 ML IVPB SCH (09:24)
[2019-12-01] MEDS: HumaLOG 300 UNITS/3 ML VIAL SC PRN (17:41)
[2019-12-01] MEDS: Semaglutide [Ozempic] 0.25 MG SC SCH (17:48)
[2019-12-01] MEDS: Mirtazapine 15 MG TAB PO SCH (20:43)
[2019-12-01] MEDS: Rosuvastatin 10 MG TAB PO SCH (20:43)
[2019-12-01] MEDS: Lantus 1000 UNITS/10 ML VIAL SC SCH (20:47)
[2019-12-02 05:28] LABS: Hemoglobin 10.5 g/dL (14.0-18.0); Platelet Count 137 thou/uL (130-400)
[2019-12-02] MEDS: Sacubitril 49 MG/Valsartan 51 MG TABLET PO SCH ×2 (08:28→20:10)
[2019-12-02] MEDS: Carvedilol 6.25 MG TAB PO SCH ×2 (08:29→20:10)
[2019-12-02] MEDS: metFORMIN 850 MG TAB PO SCH ×2 (08:29→17:39)
[2019-12-02] MEDS: Apixaban 5 MG TAB PO SCH ×2 (08:29→20:11)
[2019-12-02] MEDS: Furosemide 40 MG TAB PO SCH (08:29)
[2019-12-02] MEDS: Vancomycin HCl 1 GM in Sodium Chloride 0.9% 250 ML 250 ML IVPB SCH (09:54)
[2019-12-02] MEDS: Mirtazapine 15 MG TAB PO SCH (20:10)
[2019-12-02] MEDS: Lantus 1000 UNITS/10 ML VIAL SC SCH (20:15)
[2019-12-03] MEDS: metFORMIN 850 MG TAB PO SCH ×2 (08:30→17:35)
[2019-12-03] MEDS: Sacubitril 49 MG/Valsartan 51 MG TABLET PO SCH ×2 (08:30→20:28)
[2019-12-03] MEDS: Apixaban 5 MG TAB PO SCH ×2 (08:30→20:30)
[2019-12-03] MEDS: Carvedilol 6.25 MG TAB PO SCH ×2 (08:30→20:29)
[2019-12-03 09:13] LABS: Vancomycin, Trough 21.2 ug/mL
[2019-12-03] MEDS: Vancomycin HCl 1 GM in Sodium Chloride 0.9% 250 ML 250 ML IVPB SCH (09:38)
[2019-12-03] MEDS: Ondansetron ODT 4 MG TAB PO PRN (19:45)
[2019-12-03] MEDS: Lantus 1000 UNITS/10 ML VIAL SC SCH (20:26)
[2019-12-03] MEDS: Mirtazapine 15 MG TAB PO SCH (20:29)
[2019-12-03] MEDS: traMADol HCl 50 MG TAB PO PRN (23:16)
[2019-12-04 05:12] LABS: Hemoglobin 10.4 g/dL (14.0-18.0); Platelet Count 154 thou/uL (130-400)
[2019-12-04] MEDS: Carvedilol 6.25 MG TAB PO SCH ×2 (08:00→20:36)
[2019-12-04] MEDS: Sacubitril 49 MG/Valsartan 51 MG TABLET PO SCH ×2 (08:00→20:35)
[2019-12-04] MEDS: Apixaban 2.5 MG TAB PO SCH ×2 (08:00→20:35)
[2019-12-04] MEDS: metFORMIN 850 MG TAB PO SCH ×2 (08:00→17:41)
[2019-12-04] MEDS ORDERED: Vancomycin HCl 750 MG in Sodium Chloride 0.9% 250 ML 250 ML IVPB SCH (10:00)
[2019-12-04] MEDS: Vancomycin HCl 750 MG in Sodium Chloride 0.9% 250 ML 250 ML IVPB SCH (15:04)
[2019-12-04] MEDS: Rosuvastatin 10 MG TAB PO SCH (20:35)
[2019-12-04] MEDS: Mirtazapine 15 MG TAB PO SCH (20:36)
[2019-12-04] MEDS: Lantus 1000 UNITS/10 ML VIAL SC SCH (20:41)
[2019-12-05] MEDS: Sacubitril 49 MG/Valsartan 51 MG TABLET PO SCH ×2 (08:26→19:58)
[2019-12-05] MEDS: metFORMIN 850 MG TAB PO SCH ×2 (08:26→17:40)
[2019-12-05] MEDS: Furosemide 40 MG TAB PO SCH (08:26)
[2019-12-05] MEDS: Carvedilol 6.25 MG TAB PO SCH ×2 (08:27→20:00)
[2019-12-05] MEDS: Apixaban 2.5 MG TAB PO SCH ×2 (08:27→19:59)
[2019-12-05] MEDS: Vancomycin HCl 750 MG in Sodium Chloride 0.9% 250 ML 250 ML IVPB SCH (15:33)
[2019-12-05] MEDS: Rosuvastatin 10 MG TAB PO SCH (19:58)
[2019-12-05] MEDS: Mirtazapine 15 MG TAB PO SCH (19:59)
[2019-12-05] MEDS: Lantus 1000 UNITS/10 ML VIAL SC SCH (20:03)
[2019-12-06 04:27] LABS: Hemoglobin 10.8 g/dL (14.0-18.0); Platelet Count 144 thou/uL (130-400)
[2019-12-06] MEDS: Sacubitril 49 MG/Valsartan 51 MG TABLET PO SCH ×2 (08:23→21:00)
[2019-12-06] MEDS: Carvedilol 6.25 MG TAB PO SCH ×2 (08:23→21:01)
[2019-12-06] MEDS: Apixaban 2.5 MG TAB PO SCH ×2 (08:24→21:01)
[2019-12-06] MEDS: metFORMIN 850 MG TAB PO SCH ×2 (08:24→17:30)
[2019-12-06 14:18] LABS: Vancomycin, Trough 22.7 ug/mL
[2019-12-06] MEDS: Vancomycin HCl 500 MG in Sodium Chloride 0.9% 100 ML IVPB SCH (15:20)
[2019-12-06] MEDS: Rosuvastatin 10 MG TAB PO SCH (21:00)
[2019-12-06] MEDS: Mirtazapine 15 MG TAB PO SCH (21:01)
[2019-12-06] MEDS: Lantus 1000 UNITS/10 ML VIAL SC SCH (21:04)
[2019-12-07] MEDS: metFORMIN 850 MG TAB PO SCH ×2 (09:20→17:15)
[2019-12-07] MEDS: Sacubitril 49 MG/Valsartan 51 MG TABLET PO SCH ×2 (09:20→20:40)
[2019-12-07] MEDS: Carvedilol 6.25 MG TAB PO SCH ×2 (09:20→20:41)
[2019-12-07] MEDS: Apixaban 2.5 MG TAB PO SCH ×2 (09:20→20:40)
[2019-12-07] MEDS: Furosemide 40 MG TAB PO SCH (09:20)
[2019-12-07] MEDS: Vancomycin HCl 500 MG in Sodium Chloride 0.9% 100 ML IVPB SCH (15:24)
[2019-12-07] MEDS: HumaLOG 300 UNITS/3 ML VIAL SC PRN (17:30)
[2019-12-07] MEDS: Lantus 1000 UNITS/10 ML VIAL SC SCH (20:39)
[2019-12-07] MEDS: Rosuvastatin 10 MG TAB PO SCH (20:40)
[2019-12-07] MEDS: Mirtazapine 15 MG TAB PO SCH (20:41)
[2019-12-08 05:39] LABS: ALT (SGPT) 27 U/L (8-55); AST (SGOT) 27 U/L (5-34); Albumin 3.6 g/dL (3.4-4.8); Alkaline Phosphatase 67 U/L (40-110); Anion Gap 14 mmol/L (10-20); BUN (Urea Nitrogen) 26 mg/dL (8.4-25.7); Bilirubin, Total 0.4 mg/dL (0.2-1.2); Calc. Creatinine Clearance 29 mL/min (70-130); Carbon Dioxide 25 mmol/L (23-31); Chloride 105 mmol/L (98-107); Estimated GFR-MDRD 36; Glucose 92 mg/dL (83-110); Potassium 3.4 mmol/L (3.5-5.1); Protein, Total 6.6 g/dL (5.8-8.1); Sodium 141 mmol/L (136-145)
[2019-12-08 05:41] LABS: #Basophils 0.1 thou/uL (0.0-0.2); #Eosinphils 0.2 thou/uL (0.0-0.7); #Lymphocytes 1.8 thou/uL (1.20-3.40); #Monocytes 0.7 thou/uL (0.11-0.59); #Neutrophils 5.1 thou/uL (1.40-6.50); %Basophils 0.9 % (0.0-1.0); %Eosinophils 2.4 % (0.0-10.0); %Monocytes 8.9 % (0.0-10.0); %Neutrophils 64.8 % (42.0-75.0); Hemoglobin 10.9 g/dL (14.0-18.0); Mean Corpuscular HGB CONC 31.8 g/dL (32.0-36.0); Mean Corpuscular Hemoglobin 29.6 pg (27.0-31.0); Mean Corpuscular Volume 93.1 fL (78.0-98.0); Mean Platelet Volume 9.5 fL (7.4-10.4); Platelet Count 132 thou/uL (130-400); RBC Distribution Width 12.8 % (11.5-14.5); Red Blood Cell (RBC) Count 3.67 mill/uL (4.70-6.10); White Blood Cell (WBC) Count 7.9 thou/uL (4.8-10.8)
[2019-12-08 06:17] VITALS: TEMP 97.7
[2019-12-08] MEDS: Sacubitril 49 MG/Valsartan 51 MG TABLET PO SCH (08:26)
[2019-12-08 08:27] VITALS: BP 125/57
[2019-12-08] MEDS: Apixaban 2.5 MG TAB PO SCH (08:27)
[2019-12-08] MEDS: metFORMIN 850 MG TAB PO SCH (08:27)
[2019-12-08] MEDS: Carvedilol 6.25 MG TAB PO SCH (08:27)
[2019-12-08] MEDS: Vancomycin HCl 500 MG in Sodium Chloride 0.9% 100 ML IVPB SCH (14:46)
== END 2019-12-08 16:50 | disposition home or self-care (01) | DRG 638 ==
LOC: BURMED 12:40
PROVIDERS: ADMIT Family Medicine; ATTEND Family Medicine
PROC: 02HV33Z Insertion of Infusion Device into Superior Vena Cava, Percutaneous Approach (ICD-10-PCS; principal; 2019-12-06)
DX: E11.69 Type 2 diabetes mellitus with other specified complication (principal); L03.115 Cellulitis of right lower limb; M86.8X7 Other osteomyelitis, ankle and foot; E78.5 Hyperlipidemia, unspecified; J44.9 Chronic obstructive pulmonary disease, unspecified; R53.81 Other malaise; I11.0 Hypertensive heart disease with heart failure; I48.91 Unspecified atrial fibrillation; Z79.01 Long term (current) use of anticoagulants; Z95.810 Presence of automatic (implantable) cardiac defibrillator; Z79.4 Long term (current) use of insulin; Z86.14 Personal history of Methicillin resistant Staphylococcus aureus infection
CPT/HCPCS: 36415; 36416; 71046; 80053; 80202; 82565; 83880; 85014; 85018; 85025; 85049; 86140; 90471; 90670; 94640; G0009; J1815; J3370; J3490; J7050; J7611; J7620; Q0162

== ENCOUNTER 2020-01-02 12:16 | Observation (INO) | payer MEDICARE, OTHER ==
[2020-01-02 14:22] LABS: ALT (SGPT) 18 U/L (8-55); AST (SGOT) 16 U/L (5-34); Albumin 3.7 g/dL (3.4-4.8); Alkaline Phosphatase 77 U/L (40-110); Anion Gap 14 mmol/L (10-20); BUN (Urea Nitrogen) 23 mg/dL (8.4-25.7); Bilirubin, Total 0.7 mg/dL (0.2-1.2); Calc. Creatinine Clearance 0 mL/min (70-130); Calcium 9.1 mg/dL (7.8-10.44); Carbon Dioxide 23 mmol/L (23-31); Chloride 109 mmol/L (98-107); Estimated GFR-MDRD 44; Globulin 3.4 g/dL (2.4-3.5); Glucose 122 mg/dL (83-110); Potassium 3.6 mmol/L (3.5-5.1); Protein, Total 7.1 g/dL (5.8-8.1); Sodium 142 mmol/L (136-145)
[2020-01-02 14:25] LABS: Hemoglobin 9.9 g/dL (14.0-18.0); Mean Corpuscular HGB CONC 30.5 g/dL (32.0-36.0); Mean Corpuscular Hemoglobin 29.7 pg (27.0-31.0); Mean Corpuscular Volume 97.5 fL (78.0-98.0); Mean Platelet Volume 9.9 fL (7.4-10.4); Platelet Count 147 thou/uL (130-400); RBC Distribution Width 14.1 % (11.5-14.5); Red Blood Cell (RBC) Count 3.34 mill/uL (4.70-6.10); White Blood Cell (WBC) Count 7.1 thou/uL (4.8-10.8)
[2020-01-02 14:28] LABS: Lymphocytes 18 % (21-51); MDiff Complete? YES; Monocytes 4 % (0-10); Neutrophil 78 % (42-75); Platelet Morphology Comment Appears Adequate; RBC Morphology Normal
[2020-01-02] MEDS ORDERED: Furosemide 100 MG/10 ML VIAL ONE (15:00)
[2020-01-02 15:02] LABS: Bilirubin Negative (Negative); Blood, Urine Trace (Negative); Clarity Clear (Clear); Glucose, Urine (Dipstick) Negative (Negative); Leukocyte Negative (Negative); Nitrite Negative (Negative); Protein, Urine (Dipstick) 100 mg/dL (Neg-Trace); Urobilinogen 0.2 mg/dL (Less than 2)
[2020-01-02 15:15] LABS: Bacteria/HPF None Seen HPF (None Seen); Broad Cast None Seen LPF (None Seen); Calcium Oxalate Crystals None Seen HPF (None Seen); Cellular Cast None Seen LPF (None Seen); Epithelial Cast None Seen LPF (None Seen); Fatty Cast None Seen LPF (None Seen); Mucous/LPF 1+ LPF (<2+); Other Casts None Seen LPF (None Seen); Oval Fat Bodies/HPF None Seen HPF (None Seen); RBC/HPF 0-3 HPF (0-3); Red Blood Cell Cast None Seen LPF (None Seen); Renal Epithelial None Seen HPF (None Seen); Sperm/HPF None Seen HPF (None Seen); Squamous Epithelial None Seen HPF (0-3); Transitional Epithelial None Seen HPF (None Seen); Trichomonas/HPF None Seen HPF (None Seen); Triple Phosphate Crystal None Seen HPF (None Seen); Unclassified Crystals None Seen HPF (None Seen); WBC/HPF None Seen HPF (0-3); Waxy Cast None Seen LPF (None Seen); White Blood Cell Cast None Seen LPF (None Seen); Yeast-Budding None Seen HPF (None Seen); Yeast-Hyphae None Seen HPF (None Seen)
[2020-01-02 20:12] VITALS: BMI 22.7
[2020-01-02] MEDS ORDERED: Acetaminophen 325 MG TAB PO PRN (20:25)
[2020-01-02] MEDS ORDERED: Artificial Tear Sol 15 ML BOT FS PRN (20:25)
[2020-01-02] MEDS ORDERED: Non-Formulary Item 1 EACH (Semaglutide [Ozempic] 0.25 MG) SQ SCH (20:30)
[2020-01-02] MEDS ORDERED: Non-Formulary Item 1 EACH (Tramadol Hcl [Tramadol Hcl Er] 100 MG) PO SCH (20:30)
[2020-01-02] MEDS ORDERED: Mirtazapine 15 MG TAB PO SCH (21:00)
[2020-01-02] MEDS ORDERED: Rosuvastatin 10 MG TAB PO SCH (21:00)
[2020-01-02] MEDS ORDERED: Furosemide 100 MG/10 ML VIAL SLOW IVP SCH (21:00)
--- NOTE | 2020-01-02 21:01 | RAD ---
CHEST: 01/02/20 PA and lateral views are compared with the 11/03/2019 study. The right lung remains clear. The minor fissure is prominent as before but unchanged. There is some v ague haziness in the left lung as there was previously. It is really no worse, but it is certainly no better. The heart size is normal. There are no effusions or congestive changes. An AICD remains in p [facility]. IMPRESSION: Chronic left lung haziness with minimal change since October. POS: HOME
[2020-01-02] MEDS: Sacubitril 49 MG/Valsartan 51 MG TABLET PO SCH (22:01)
[2020-01-02] MEDS: Carvedilol 6.25 MG TAB PO SCH (22:01)
[2020-01-02] MEDS: Lantus 1000 UNITS/10 ML VIAL SC SCH (22:01)
[2020-01-02] MEDS: Apixaban 5 MG TAB PO SCH (22:02)
[2020-01-03] MEDS: Albuterol 200 PUFF (6.7GM INHALER) INH SCH ×3 (00:06→12:06)
[2020-01-03 05:30] LABS: Anion Gap 14 mmol/L (10-20); BUN (Urea Nitrogen) 26 mg/dL (8.4-25.7); Calc. Creatinine Clearance 35 mL/min (70-130); Carbon Dioxide 24 mmol/L (23-31); Chloride 106 mmol/L (98-107); Estimated GFR-MDRD 42; Glucose 118 mg/dL (83-110); Sodium 141 mmol/L (136-145)
[2020-01-03 05:40] LABS: Potassium 2.9 mmol/L (3.5-5.1)
[2020-01-03] MEDS ORDERED: Potassium Chloride 20 MEQ TAB PO SCH ×2 (05:45→07:30)
[2020-01-03] MEDS ORDERED: Mometasone 100 MCG/PUFF (1 INHALER) INH SCH (07:00)
[2020-01-03] MEDS ORDERED: Icosapent Ethyl [Vascepa] 1 GM PO SCH (08:00)
[2020-01-03] MEDS ORDERED: metFORMIN 850 MG TAB PO SCH (08:00)
[2020-01-03] MEDS: Sacubitril 49 MG/Valsartan 51 MG TABLET PO SCH (08:25)
[2020-01-03] MEDS: Apixaban 5 MG TAB PO SCH (08:27)
[2020-01-03] MEDS: Lantus 1000 UNITS/10 ML VIAL SC SCH (08:28)
[2020-01-03] MEDS: Carvedilol 6.25 MG TAB PO SCH (08:53)
[2020-01-03] MEDS ORDERED: Non-Formulary Item 1 EACH (Fluticasone/Umeclidin/Vilanter [Trelegy Ellipta 100-62.5-25] 1 IH SCH (09:00)
[2020-01-03 11:56] LABS: Anion Gap 12 mmol/L (10-20); BUN (Urea Nitrogen) 20 mg/dL (8.4-25.7); Calc. Creatinine Clearance 45 mL/min (70-130); Calcium 7.7 mg/dL (7.8-10.44); Carbon Dioxide 21 mmol/L (23-31); Chloride 113 mmol/L (98-107); Estimated GFR-MDRD 55; Glucose 114 mg/dL (83-110); Potassium 3.4 mmol/L (3.5-5.1); Sodium 143 mmol/L (136-145)
[2020-01-03 12:47] LABS: SARS-CoV-2 MS2 Positive; SARS-CoV-2 N Gene Negative; SARS-CoV-2 S Gene Negative; SARS-CoV-2 orf1ab Negative
[2020-01-03 13:45] VITALS: BP 118/67; TEMP 97.7
--- NOTE | 2020-01-04 12:07 | HP ---
CHIEF COMPLAINT: Shortness of breath. HISTORY OF PRESENT ILLNESS: This is a 74-year-old male, patient of Dr. Alves, who presented to the [facility] Emergency Department last night secondary to complaints of short shortness of breath, particularly exacerbated with exertional activities and when lying on his back, he noted to be mildly tachypneic. He was noted to have edema up to the level of the inferior aspect of the knees as well. The patient does have a history of chronic systolic congestive heart failure for which he is a patient of Dr. Linares and also has a history of COPD. The patient reports to be compliant with his medications in regard to these chronic conditions. In the emergency department, he received IV Lasix 60 mg and labs revealed a markedly elevated BNP of greater than 4000. Due to the concern for volume overload, tachypnea and orthopnea, he was admitted for IV diuresis secondary to CHF exacerbation. PAST MEDICAL HISTORY: Includes chronic systolic congestive heart failure, COPD, obstructive sleep apnea, insulin-dependent diabetes mellitus, hypertension, dyslipidemia, and CKD stage 3. SURGICAL HISTORY: Includes a left endarterectomy and surgery to the right foot for treatment of osteomyelitis. SOCIAL HISTORY: Denies smoking, alcohol, or illicit drug use. ALLERGIES: NO KNOWN DRUG ALLERGIES. FAMILY HISTORY: Noncontributory. CURRENT MEDICATIONS: Include 1. Tramadol 100 mg extended release once a day p.r.n. 2. Trelegy one inhalation daily. 3. Vascepa 1 g b.i.d. 4. Crestor 40 mg daily. 5. Entresto 97 mg-103 mg b.i.d. 6. Lantus 15 units subcutaneously b.i.d. 7. Metformin 850 mg b.i.d. 8. Carvedilol 6.25 mg b.i.d. 9. Eliquis 5 mg b.i.d. 10. Artificial Tears as needed. 11. Ozempic 0.25 mg subcutaneously once a week. 12. Mirtazapine 15 mg at bedtime. REVIEW OF SYSTEMS: GENERAL: The patient denies fever, chills or diaphoresis. EAR, NOSE, AND THROAT: Denies sore throat, nasal drainage or congestion. CARDIOVASCULAR: Denies chest pain or palpitations. RESPIRATORY: Complains of shortness of breath. Denies cough. GASTROINTESTINAL: Denies abdominal pain, nausea, vomiting, diarrhea, or constipation. GENITOURINARY: Denies dysuria. MUSCULOSKELETAL: Denies joint pain. DERMATOLOGIC: Denies rash. NEUROLOGIC: Denies headache. LABORATORY DATA: White blood cell count 7.1, hemoglobin 9.9, hematocrit 32.5, platelets 147. Sodium 143, potassium 3.4, BUN 20, creatinine 1.29 with a GFR 55 , glucose 114. BNP 4103.2. IMAGING DATA: Chest x-ray showed chronic left lung haziness with minimal change since October. PHYSICAL EXAMINATION: VITAL SIGNS: Temperature is 97.7, pulse is 70, blood pressure 120/68, respiratory rate is 18, oxygen is 94% on room air. GENERAL: The patient is alert and oriented, in no acute distress. HEAD, EYES, EARS, NOSE AND THROAT: Normocephalic, atraumatic. Extraocular muscles are intact bilaterally. Pupils are equal, round, and reactive to light. Eyes, moist mucous membranes. NECK: Supple without lymphadenopathy. CARDIOVASCULAR: Regular rate and rhythm with a 2/6 systolic murmur. RESPIRATORY: Clear to auscultation without wheezes, rales, or rhonchi. ABDOMEN: Soft and nontender to palpation. No rebound or guarding. No masses. EXTREMITIES: No clubbing, cyanosis, or edema. SKIN: No rashes. NEUROLOGIC: Nonfocal with cranial nerves 2 through 12 grossly intact. ASSESSMENT AND PLAN: 1. Acute on chronic systolic congestive heart failure exacerbation. The patient received 60 mg IV Lasix in the emergency department and then a second 60 mg IV Lasix dose last night on the floor. At this time, he appears completely euvolemic with no edema and no pulmonary rales. In regard to the patient's BNP, this is likely elevated secondary to him being on Entresto therapy. 2. Chronic obstructive pulmonary disease. The patient is saturating well on room air. He takes Trelegy daily and has a rescue inhaler for as needed use. I suspect some of his recent respiratory concerns in regard to dyspnea may be related to his underlying COPD and thus we will discharge him with a short course of prednisone at 20 mg daily for 5 days. 3. Hypokalemia. The patient developed hypokalemia in relation to receiving Lasix. This has been corrected. I am going to send him home with a course of once daily 20 mg Lasix as needed should he develop edema and will supplement 20 mEq of potassium daily. 4. Insulin-dependent diabetes mellitus. Glucose well controlled during his stay. We will resume his usual medications. 5. Hypertension. The patient is hemodynamically stable with blood pressure at goal. Resume his usual medications. 6. Dyslipidemia. Continue statin therapy. 7. Chronic kidney disease stage 3. Patient's renal function appears to be stable at his baseline. DISCHARGE MEDICATIONS: He will continue his usual home medications and as noted, I will add 1. Potassium 20 mEq p.o. daily. 2. Furosemide 20 mg q.a.m. as needed for edema, and. 3. Prednisone 20 mg once daily x5 days. DISPOSITION: The patient's obs admission is likely related to a combination of acute on chronic systolic CHF exacerbation and COPD. He is euvolemic after receiving IV Lasix therapy and as noted his BNP elevation is likely due to his Entresto therapy. He will be discharged home where he lives with his locally and brother-in- law. He may follow up with Dr. Alves in a week and he is scheduled to follow up with Dr. Linares within the next week as well. Job ID: [id number] MTDD
== END 2020-01-03 13:35 | disposition home or self-care (01) ==
LOC: BURERS 12:16 → BURMED 17:35
PROVIDERS: ADMIT Family Medicine; ATTEND Family Medicine
DX: I13.0 Hypertensive heart and chronic kidney disease with heart failure and stage 1 through stage 4 chronic kidney disease, or unspecified chronic kidney disease (principal); E11.22 Type 2 diabetes mellitus with diabetic chronic kidney disease; N18.3 Chronic kidney disease, stage 3 (moderate); I50.23 Acute on chronic systolic (congestive) heart failure; E87.6 Hypokalemia; J44.9 Chronic obstructive pulmonary disease, unspecified; E78.5 Hyperlipidemia, unspecified; G47.33 Obstructive sleep apnea (adult) (pediatric); E78.00 Pure hypercholesterolemia, unspecified; Z79.01 Long term (current) use of anticoagulants; Z79.4 Long term (current) use of insulin; Z79.899 Other long term (current) drug therapy
CPT/HCPCS: 36415; 36416; 71046; 80048; 80053; 81003; 81015; 83605; 83880; 84484; 85025; 85379; 87040; 87635; 87804; 93005; 94760; 96374; G0378; J1815; J1940; U0003

== ENCOUNTER 2020-02-13 08:44 | Outpatient (CLI) | payer MEDICARE ==
[2020-02-13 09:14] LABS: Anion Gap 15 mmol/L (10-20); BUN (Urea Nitrogen) 20 mg/dL (8.4-25.7); Calc. Creatinine Clearance 0 mL/min (70-130); Calcium 9.5 mg/dL (7.8-10.44); Carbon Dioxide 22 mmol/L (23-31); Chloride 107 mmol/L (98-107); Estimated GFR-MDRD 40; Glucose 91 mg/dL (83-110); Potassium 3.9 mmol/L (3.5-5.1); Sodium 140 mmol/L (136-145)
== END 2020-02-13 08:45 | disposition home or self-care (01) ==
LOC: BURLAB 08:44
PROVIDERS: ATTEND Internal Medicine Cardiovascular Disease
DX: I42.9 Cardiomyopathy, unspecified (principal)
CPT/HCPCS: 36415; 80048

== ENCOUNTER 2020-03-03 04:51 | Emergency (ER) | payer MEDICARE ==
[2020-03-03 05:21] LABS: #Eosinphils 0.1 thou/uL (0.0-0.7); #Lymphocytes 1.1 thou/uL (1.20-3.40); #Monocytes 0.7 thou/uL (0.11-0.59); #Neutrophils 5.5 thou/uL (1.40-6.50); %Basophils 0.4 % (0.0-1.0); %Eosinophils 1.6 % (0.0-10.0); %Lymphocytes 14.5 % (21.0-51.0); %Monocytes 9.6 % (0.0-10.0); %Neutrophils 73.9 % (42.0-75.0); Mean Corpuscular HGB CONC 31.8 g/dL (32.0-36.0); Mean Corpuscular Hemoglobin 30.4 pg (27.0-31.0); Mean Corpuscular Volume 95.6 fL (78.0-98.0); Mean Platelet Volume 11.4 fL (7.4-10.4); Platelet Count 134 thou/uL (130-400); RBC Distribution Width 13.6 % (11.5-14.5); Red Blood Cell (RBC) Count 3.28 mill/uL (4.70-6.10); White Blood Cell (WBC) Count 7.4 thou/uL (4.8-10.8)
[2020-03-03] MEDS ORDERED: Furosemide 100 MG/10 ML VIAL ONE (05:22)
[2020-03-03 05:36] LABS: ALT (SGPT) 33 U/L (8-55); AST (SGOT) 17 U/L (5-34); Albumin 3.5 g/dL (3.4-4.8); Alkaline Phosphatase 122 U/L (40-110); Anion Gap 15 mmol/L (10-20); BUN (Urea Nitrogen) 36 mg/dL (8.4-25.7); Bilirubin, Total 0.4 mg/dL (0.2-1.2); Calc. Creatinine Clearance 0 mL/min (70-130); Carbon Dioxide 21 mmol/L (23-31); Chloride 107 mmol/L (98-107); Estimated GFR-MDRD 31; Globulin 3.2 g/dL (2.4-3.5); Glucose 219 mg/dL (83-110); Potassium 4.2 mmol/L (3.5-5.1); Protein, Total 6.7 g/dL (5.8-8.1); Sodium 139 mmol/L (136-145)
[2020-03-03 05:54] LABS: CKMB 1.7 ng/mL (0-6.6)
--- NOTE | 2020-03-03 08:55 | RAD ---
Exam: Chest one view HISTORY:Shortness of breath Comparison: 01/02/2020 FINDINGS: Cardiac silhouette:Normal cardiac silhouette. Stable left-sided defibrillator Aorta: Unremarkable Pulmonary vessels: Mildly prominent Costophrenic angles: There is stable thickening of the minor fissure LUNGS: Diffuse interstitial and alveolar opacities, unchanged. Pneumothorax: None Osseous abnormalities: None IMPRESSION: 1. Correlate for pulmonary edema. Superimposed infiltrate cannot be excluded. Continued surveillance is recommended.
== END 2020-03-03 06:20 | disposition short-term general hospital (02) ==
LOC: BURERS 04:51
DX: I11.0 Hypertensive heart disease with heart failure (principal); I50.1 Left ventricular failure, unspecified; E78.5 Hyperlipidemia, unspecified; E78.00 Pure hypercholesterolemia, unspecified; J44.9 Chronic obstructive pulmonary disease, unspecified; Z79.51 Long term (current) use of inhaled steroids; Z79.899 Other long term (current) drug therapy
CPT/HCPCS: 71045; 80053; 82553; 83605; 83880; 84484; 85025; 85379; 93005; 94760; 96374; J1940

== ENCOUNTER 2020-05-19 10:39 | Emergency (ER) | payer MEDICARE ==
[2020-05-19 11:39] LABS: ALT (SGPT) 307 U/L (8-55); AST (SGOT) 104 U/L (5-34); Albumin 3.4 g/dL (3.4-4.8); Alkaline Phosphatase 192 U/L (40-110); Anion Gap 14 mmol/L (10-20); BUN (Urea Nitrogen) 27 mg/dL (8.4-25.7); Base Excess-Venous -5.4 mmol/L (-2.0 to 3.0); Bicarbonate (HCO3v) 21.3 mmol/L (22.0-28.0); Bilirubin, Total 0.8 mg/dL (0.2-1.2); CO2 Tension (PvCO2) 45.6 mmHg (40.0-50.0); Calc. Creatinine Clearance 0 mL/min (70-130); Calcium 8.7 mg/dL (7.8-10.44); Calcium, Ionized 1.22 mmol/L (1.15-1.33); Carbon Dioxide 19 mmol/L (23-31); Chloride 108 mmol/L (98-107); Estimated GFR-MDRD 24; Globulin 3.3 g/dL (2.4-3.5); Glucose 211 mg/dL (83-110); Hemoglobin - Calc 10.9 g/dL (14.0-18.0); Potassium 3.9 mmol/L (3.5-5.1); Protein, Total 6.7 g/dL (5.8-8.1); Sodium 137 mmol/L (136-145); Sodium 139 mmol/L (138-145); T. Carbon Dioxide 22.7 mmol/L (22.0-28.0); vO2 Saturation-calc 80.5 % (60.0-85.0)
[2020-05-19 11:40] LABS: #Eosinphils 0.1 thou/uL (0.0-0.7); #Lymphocytes 1.1 thou/uL (1.20-3.40); #Monocytes 0.6 thou/uL (0.11-0.59); %Basophils 0.6 % (0.0-1.0); %Eosinophils 0.8 % (0.0-10.0); %Lymphocytes 16.3 % (21.0-51.0); %Monocytes 8.6 % (0.0-10.0); %Neutrophils 73.8 % (42.0-75.0); Anisocytosis SLIGHT = 6-15 cells (100X) (0-5/hpf); Hemoglobin 10.6 g/dL (14.0-18.0); MDiff Complete? YES; Mean Corpuscular Hemoglobin 27.6 pg (27.0-31.0); Mean Corpuscular Volume 91.9 fL (78.0-98.0); Mean Platelet Volume 13.3 fL (7.4-10.4); Ovalocytes SLIGHT = 2-5 cells (100X) (0-1/hpf); Platelet Count 87 thou/uL (130-400); Platelet Morphology Comment Appears Decreased; Poikilocytosis SLIGHT = 6-15 cells (100X) (0-5/hpf); RBC Distribution Width 15.2 % (11.5-14.5); Red Blood Cell (RBC) Count 3.84 mill/uL (4.70-6.10); Schistocytes SLIGHT = 2-5 cells (100X) (0-1/hpf); Tear Drops SLIGHT = 2-5 cells (100X) (0-1/hpf); White Blood Cell (WBC) Count 6.8 thou/uL (4.8-10.8)
[2020-05-19] MEDS ORDERED: Furosemide 100 MG/10 ML VIAL ONE (11:49)
[2020-05-19 11:57] LABS: CKMB 2.5 ng/mL (0-6.6)
--- NOTE | 2020-05-19 15:17 | RAD ---
PORTABLE CHEST: Date: 05-19-2020 An AP portable film at 1124 is compared with an 03-03-2020 study. FINDINGS: The heart is mildly enlarged. The vessels are congested and there is some mild pulmonary edema presen t. The findings suggest CHF. The AICD remains in place. While there are no large effusions, there may be a small one on the right. IMPRESSION: Mild congestive change. POS: HOME
== END 2020-05-19 14:40 | disposition short-term general hospital (02) ==
LOC: BURERS 10:39
DX: I11.0 Hypertensive heart disease with heart failure (principal); I50.9 Heart failure, unspecified; D64.9 Anemia, unspecified; R94.5 Abnormal results of liver function studies; R79.1 Abnormal coagulation profile; N28.9 Disorder of kidney and ureter, unspecified; D69.6 Thrombocytopenia, unspecified; R79.89 Other specified abnormal findings of blood chemistry; E78.5 Hyperlipidemia, unspecified; E78.00 Pure hypercholesterolemia, unspecified; J44.9 Chronic obstructive pulmonary disease, unspecified; Z79.899 Other long term (current) drug therapy; Z79.01 Long term (current) use of anticoagulants
CPT/HCPCS: 36415; 71045; 80053; 82330; 82435; 82553; 82803; 83880; 84132; 84295; 84484; 85014; 85025; 85379; 93005; 94640; 94760; 96374; J1940; J7620

== ENCOUNTER 2020-06-08 21:58 | Emergency (ER) | payer MEDICARE ==
[2020-06-08] MEDS ORDERED: Furosemide 40 MG/4 ML VIAL ONE (22:45)
[2020-06-08 22:55] LABS: INR-International Normal Ratio 1.5; PTT 28.4 sec (22.9-36.1); Prothrombin Time 18.4 sec (12.0-14.7)
[2020-06-08 23:04] LABS: ALT (SGPT) 107 U/L (8-55); AST (SGOT) 85 U/L (5-34); Albumin 3.8 g/dL (3.4-4.8); Alkaline Phosphatase 188 U/L (40-110); Anion Gap 24 mmol/L (10-20); BUN (Urea Nitrogen) 45 mg/dL (8.4-25.7); Bilirubin, Total 0.9 mg/dL (0.2-1.2); Calc. Creatinine Clearance 0 mL/min (70-130); Calcium 8.9 mg/dL (7.8-10.44); Carbon Dioxide 14 mmol/L (23-31); Chloride 102 mmol/L (98-107); Estimated GFR-MDRD 18; Glucose 406 mg/dL (83-110); Hemoglobin 12.2 g/dL (14.0-18.0); Mean Corpuscular HGB CONC 31.6 g/dL (32.0-36.0); Mean Corpuscular Hemoglobin 28.6 pg (27.0-31.0); Mean Corpuscular Volume 90.6 fL (78.0-98.0); Mean Platelet Volume 16.9 fL (7.4-10.4); Platelet Count 96 thou/uL (130-400); Potassium 5.6 mmol/L (3.5-5.1); Protein, Total 6.8 g/dL (5.8-8.1); RBC Distribution Width 16.8 % (11.5-14.5); Red Blood Cell (RBC) Count 4.27 mill/uL (4.70-6.10); Sodium 134 mmol/L (136-145); White Blood Cell (WBC) Count 10.1 thou/uL (4.8-10.8)
[2020-06-08] MEDS ORDERED: Piperacillin/Tazobactam 4.5 GM VIAL ONE (23:04)
[2020-06-08] MEDS ORDERED: methylPREDNISolone Sod Succ/PF 125 MG/2 ML VIAL ONE (23:04)
[2020-06-08] MEDS ORDERED: Magnesium 2 GM/50 ML BAG (IN WATER) ONE (23:04)
[2020-06-08 23:06] LABS: Base Excess-Venous -9.8 mmol/L (-2.0 to 3.0); Bicarbonate (HCO3v) 17.4 mmol/L (22.0-28.0); Calcium, Ionized 1.16 mmol/L (1.15-1.33); Chloride 102 mmol/L (98-107); Hemoglobin - Calc 13.6 g/dL (14.0-18.0); Potassium 5.2 mmol/L (3.5-5.1); Sodium 134 mmol/L (138-145); T. Carbon Dioxide 18.7 mmol/L (22.0-28.0); vO2 Saturation-calc 54.8 % (60.0-85.0)
[2020-06-08] MEDS ORDERED: Sodium Chloride 0.9% 200 ML ONE (23:07)
[2020-06-08 23:19] LABS: #Basophils 0.1 thou/uL (0.0-0.2); #Lymphocytes 1.4 thou/uL (1.20-3.40); #Monocytes 0.8 thou/uL (0.11-0.59); #Neutrophils 7.8 thou/uL (1.40-6.50); %Basophils 0.9 % (0.0-1.0); %Eosinophils 0.1 % (0.0-10.0); %Lymphocytes 13.9 % (21.0-51.0); %Monocytes 8.1 % (0.0-10.0); %Neutrophils 76.9 % (42.0-75.0); Burr Cells MODERATE= 6-15 cells (100X) (0-1/hpf); Elliptocytes SLIGHT = 2-5 cells (100X) (0-1/hpf); Large Platelets SLIGHT; Lymphocytes 12 % (21-51); MDiff Complete? YES; Monocytes 8 % (0-10); Neutrophil 77 % (42-75); Platelet Morphology Comment Appears Decreased; Reactive Lymphocytes 3 % (0-10); Schistocytes SLIGHT = 2-5 cells (100X) (0-1/hpf)
[2020-06-08] MEDS ORDERED: Albuterol Sulfate 2.5 mg/0.5 ml Neb ONE (23:30)
[2020-06-08] MEDS ORDERED: Albuterol Sulfate 1.25 MG/3 ML NEB ONE ×2 (23:30→23:47)
[2020-06-08] MEDS ORDERED: Lidocaine 2% PF 5 ML VIAL ONE (23:43)
--- NOTE | 2020-06-09 07:35 | RAD ---
PORTABLE CHEST: DATE: 06/08/2020. FINDINGS: An AP portable film at 2237 is compared with an 05/19 study. In the interval, a denser patchy area is seen in the right lung base. A developing pneumonia is suspected. The left lung is relatively liliana r. There are no large effusions, though small ones might be present. Mild cardiomegaly is about the same as before. The cardiac pacing device remains in place. IMPRESSION: Interval increasing infiltrate in the right base. Pneumonia presumed. CODE T POS: HOME
== END 2020-06-09 00:38 | disposition short-term general hospital (02) ==
LOC: BURERS 21:58
DX: A41.9 Sepsis, unspecified organism (principal); R65.20 Severe sepsis without septic shock; N17.9 Acute kidney failure, unspecified; J96.00 Acute respiratory failure, unspecified whether with hypoxia or hypercapnia; J18.9 Pneumonia, unspecified organism; E78.5 Hyperlipidemia, unspecified; E78.00 Pure hypercholesterolemia, unspecified; I10 Essential (primary) hypertension; J44.9 Chronic obstructive pulmonary disease, unspecified; Z79.899 Other long term (current) drug therapy; Z79.01 Long term (current) use of anticoagulants
CPT/HCPCS: 36680; 71045; 80053; 82330; 82553; 82803; 83605; 83880; 84484; 85025; 85610; 85730; 87040; 87077; 87149; 87186; 93005; 94660; 94760; 96365; 96367; 96375; J1940; J2001; J2543; J2930; J3370; J3475; J3490; J7611; J7620

== ENCOUNTER 2020-12-31 04:20 | Emergency (ER) | payer MEDICARE ==
[2020-12-31] MEDS ORDERED: DOBUTamine 500 mg/250 ml 250 ML ONE (05:06)
[2020-12-31 05:25] LABS: Hemoglobin 8.2 g/dL (14.0-18.0); Mean Corpuscular HGB CONC 29.9 g/dL (32.0-36.0); Mean Corpuscular Hemoglobin 27.8 pg (27.0-31.0); Mean Platelet Volume 14.7 fL (7.4-10.4); Platelet Count 18 thou/uL (130-400); Red Blood Cell (RBC) Count 2.94 mill/uL (4.70-6.10); White Blood Cell (WBC) Count 5.6 thou/uL (4.8-10.8)
[2020-12-31 05:26] LABS: ALT (SGPT) 86 U/L (8-55); AST (SGOT) 73 U/L (5-34); Albumin 3.3 g/dL (3.4-4.8); Alkaline Phosphatase 92 U/L (40-110); Anion Gap 21 mmol/L (10-20); BUN (Urea Nitrogen) 49 mg/dL (8.4-25.7); Bilirubin, Total 1.9 mg/dL (0.2-1.2); Calc. Creatinine Clearance 0 mL/min (70-130); Calcium 8.8 mg/dL (7.8-10.44); Carbon Dioxide 16 mmol/L (23-31); Chloride 106 mmol/L (98-107); Globulin 3.1 g/dL (2.4-3.5); Glucose 73 mg/dL (83-110); Potassium 4.7 mmol/L (3.5-5.1); Protein, Total 6.4 g/dL (5.8-8.1); Sodium 138 mmol/L (136-145)
[2020-12-31 05:32] LABS: #Lymphocytes 0.8 thou/uL (1.20-3.40); #Monocytes 0.6 thou/uL (0.11-0.59); #Neutrophils 4.2 thou/uL (1.40-6.50); %Basophils 0.5 % (0.0-1.0); %Eosinophils 0.3 % (0.0-10.0); %Lymphocytes 13.8 % (21.0-51.0); %Monocytes 10.6 % (0.0-10.0); %Neutrophils 74.8 % (42.0-75.0)
[2020-12-31 05:35] LABS: Anisocytosis MODERATE=16-30 cells (100X) (0-5/hpf); Critical Call w/ Read Back NUR.CMA; MDiff Complete? YES; Platelet Morphology Comment Appears Decreased; Poikilocytosis SLIGHT = 6-15 cells (100X) (0-5/hpf); Reflex for Review?? YES
[2020-12-31] MEDS ORDERED: diphenhydrAMINE 50 MG/ML VIAL ONE (05:35)
[2020-12-31] MEDS ORDERED: Dextrose 50% Abboject 50 ML SYRINGE ONE (05:40)
[2020-12-31 06:43] LABS: SARS-CoV-2 NAA Rapid Test Not Detected (NotDetected)
[2020-12-31] MEDS ORDERED: Acetaminophen 500 MG TAB ONE (06:46)
== END 2020-12-31 09:21 | disposition short-term general hospital (02) ==
LOC: BURERS 04:20
DX: I50.20 Unspecified systolic (congestive) heart failure (principal); I50.30 Unspecified diastolic (congestive) heart failure; D69.6 Thrombocytopenia, unspecified; E78.5 Hyperlipidemia, unspecified; E78.00 Pure hypercholesterolemia, unspecified; J44.9 Chronic obstructive pulmonary disease, unspecified; Z79.899 Other long term (current) drug therapy
CPT/HCPCS: 0240U; 71045; 80053; 82553; 84484; 85025; 93005; 96365; 96366; 96374; 96375; 99285; 85060; J1200; J1250

== ENCOUNTER 2021-01-12 14:15 | Emergency (ER) | payer MEDICARE | END 2021-01-12 15:32 | disposition home or self-care (01) | LOC: BURERS 14:15 | DX: T82.594A Other mechanical complication of infusion catheter, initial encounter (principal); I11.0 Hypertensive heart disease with heart failure; I50.9 Heart failure, unspecified; E78.5 Hyperlipidemia, unspecified; J44.9 Chronic obstructive pulmonary disease, unspecified; E78.00 Pure hypercholesterolemia, unspecified | CPT/HCPCS: 99283 ==

== ENCOUNTER 2021-01-13 15:08 | Emergency (ER) | payer MEDICARE ==
[2021-01-13 16:16] LABS: #Lymphocytes 0.3 thou/uL (1.20-3.40); #Monocytes 0.5 thou/uL (0.11-0.59); #Neutrophils 7.2 thou/uL (1.40-6.50); %Basophils 0.2 % (0.0-1.0); %Eosinophils 0.1 % (0.0-10.0); %Lymphocytes 4.1 % (21.0-51.0); %Monocytes 5.9 % (0.0-10.0); %Neutrophils 89.8 % (42.0-75.0); Hemoglobin 9.9 g/dL (14.0-18.0); Mean Corpuscular HGB CONC 29.9 g/dL (32.0-36.0); Mean Corpuscular Hemoglobin 29.3 pg (27.0-31.0); Mean Corpuscular Volume 98.2 fL (78.0-98.0); Mean Platelet Volume 14.8 fL (7.4-10.4); Platelet Count 22 thou/uL (130-400); RBC Distribution Width 22.6 % (11.5-14.5); Red Blood Cell (RBC) Count 3.39 mill/uL (4.70-6.10)
[2021-01-13 16:22] LABS: ALT (SGPT) 69 U/L (8-55); AST (SGOT) 18 U/L (5-34); Alkaline Phosphatase 74 U/L (40-110); Anion Gap 16 mmol/L (10-20); BUN (Urea Nitrogen) 35 mg/dL (8.4-25.7); Bilirubin, Total 3.6 mg/dL (0.2-1.2); Calc. Creatinine Clearance 0 mL/min (70-130); Carbon Dioxide 19 mmol/L (23-31); Chloride 102 mmol/L (98-107); Globulin 2.1 g/dL (2.4-3.5); Glucose 134 mg/dL (83-110); Potassium 3.9 mmol/L (3.5-5.1); Protein, Total 5.1 g/dL (5.8-8.1); Sodium 133 mmol/L (136-145)
[2021-01-13 17:42] LABS: CKMB 8.1 ng/mL (0-6.6)
[2021-01-13 17:46] LABS: Anisocytosis MODERATE=16-30 cells (100X) (0-5/hpf); Elliptocytes SLIGHT = 2-5 cells (100X) (0-1/hpf); Hypochromia SLIGHT = 6-15 cells (100X) (0-5/hpf); MDiff Complete? YES; Platelet Morphology Comment Appears Decreased; Poikilocytosis SLIGHT = 6-15 cells (100X) (0-5/hpf)
== END 2021-01-13 18:20 | disposition short-term general hospital (02) ==
LOC: BURERS 15:08
DX: D69.6 Thrombocytopenia, unspecified (principal); I11.0 Hypertensive heart disease with heart failure; I50.9 Heart failure, unspecified; E78.5 Hyperlipidemia, unspecified; E78.00 Pure hypercholesterolemia, unspecified; J44.9 Chronic obstructive pulmonary disease, unspecified
CPT/HCPCS: 36415; 80053; 82553; 83605; 84484; 85025; 93005